=== PATIENT | male | born 1950 | race African-American/Black ===

== ENCOUNTER 2017-03-01 05:38 | Inpatient (IN) ==
[2017-02-24 08:52] LABS: MANUAL DIFF NEEDED? NO; URINE MICRO REVIEW NEEDED? NO; URINE SOURCE CLEAN CATCH
[2017-02-24 09:19] LABS: BASO% 0.2 % (0.0-0.8); EOS# 0.25 X1000 (0.0-0.7); EOS% 5.5 % (0.0-10.0); HEMATOCRIT 40.7 % (42.0-52.0); HEMOGLOBIN 13.3 g/dL (14.0-18.0); LYMPH# 1.25 X1000 (1.2-3.4); LYMPH% 27.5 % (20.5-51.1); MCH 28.9 PG (27-31); MCHC 32.7 g/dL (33-37); MCV 88.3 FL (81-99); MONO# 0.66 X1000 (0.11-0.59); MONO% 14.5 % (1.7-9.3); MPV 9.5 FL (7.4-10.4); NEUT% 52.3 % (42.2-75.2); PLT 282 X1000 (130-400); RBC 4.61 XMIL (4.7-6.1)
[2017-02-24 09:21] LABS: BILIRUBIN URINE NEGATIVE (NEGATIVE); BLOOD URINE NEGATIVE (NEGATIVE); COLOR YELLOW; GLUCOSE URINE NEGATIVE (NEGATIVE); LEUKOCYTES URINE NEGATIVE (NEGATIVE); NITRITE URINE NEGATIVE (NEGATIVE); PH URINE 5.5; PROTEIN URINE NEGATIVE (NEGATIVE); SP GRAVITY URINE 1.021; TURBIDITY URINE CLEAR (CLEAR); UROBILINOGEN URINE NORMAL (NORMAL)
[2017-02-24 09:23] LABS: UR EPITHELIAL CELLS <10 /HPF (<10); URINE BACTERIA NEGATIVE /HPF; URINE RBC <10 /HPF (<10); URINE WBC <10 /HPF (<10)
[2017-02-24 09:29] LABS: PROTIME 10.5 Seconds (9.2-11.7); PTT 28.5 Seconds (22.0-36.0)
--- NOTE | 2017-02-24 09:30 | EKG Report ---
Test Performed on : 02/24/2017 08:37:48 AM Test Reason : MD ORDER Blood Pressure : / mmHG Vent. Rate : 078 BPM Atrial Rate : 078 BPM P-R Int : 188 ms QRS Dur : 080 ms QT Int : 382 ms P-R-T Axes : 062 008 049 degrees QTc Int : 435 ms Normal sinus rhythm. Possible Left atrial enlargement Possible Inferior infarct , age undetermined Abnormal ECG No previous ECGs available Confirmed by Pramod Ramos MD ([id number]) on 02/24/2017 1:32:59 PM
[2017-02-24 09:45] LABS: AGAP 12; BUN 33 mg/dL (8-22); CALCIUM 9.6 mg/dL (8.8-10.2); CHLORIDE 100 mmol/L (98-107); COSMO 285; POTASSIUM 4.3 mmol/L (3.5-5.1); SODIUM 139 mmol/L (136-145); TCO2 27 mmol/L (25-35)
[2017-03-01] MEDS ORDERED: COLACE ONE (05:41)
[2017-03-01] MEDS ORDERED: PEPCID ONE (05:41)
[2017-03-01] MEDS ORDERED: REGLAN ONE (05:41)
[2017-03-01] MEDS ORDERED: LR 1,000 ML ONE (05:42)
[2017-03-01] MEDS ORDERED: KEFZOL 2 GM/D5W 2 GM/50 ML IVPB ONE (05:42)
[2017-03-01] MEDS ORDERED: LYRICA ONE (05:42)
[2017-03-01] MEDS ORDERED: CELEBREX ONE (05:42)
[2017-03-01] MEDS ORDERED: CYKLOKAPRON 1,000 MG/NS 2,000 MG/200 ML IVPB ONE (06:37)
[2017-03-01] MEDS ORDERED: TORADOL ONE (06:37)
[2017-03-01] MEDS ORDERED: EXPAREL 1.3% ONE (06:37)
[2017-03-01] MEDS ORDERED: DURAMORPH ONE (06:37)
[2017-03-01] MEDS ORDERED: NEOSPORIN G.U. IRRIGANT ONE (06:37)
[2017-03-01] MEDS ORDERED: SODIUM CHLORIDE 0.9% ONE (06:38)
[2017-03-01] MEDS ORDERED: DIPRIVAN 1% 500 MG/50 ML BOTTLE ONE (06:41)
[2017-03-01] MEDS ORDERED: VERSED ONE (06:45)
[2017-03-01] MEDS ORDERED: FENTANYL ONE (06:45)
[2017-03-01] MEDS ORDERED: SENSORCAINE 0.25%/EPI 1:200,000 ONE (06:49)
[2017-03-01] MEDS ORDERED: XYLOCAINE-MPF 2% ONE (07:18)
[2017-03-01] MEDS ORDERED: NEO-SYNEPHRINE ONE (07:37)
[2017-03-01] MEDS ORDERED: ROBINUL ONE (07:55)
[2017-03-01] MEDS ORDERED: PITRESSIN ONE (08:00)
[2017-03-01] MEDS ORDERED: ZOFRAN ONE (08:10)
[2017-03-01] MEDS ORDERED: OFIRMEV 1000 MG/ISOTONIC SOLN 1,000 MG/100 ML BOTTLE ONE (08:10)
[2017-03-01] MEDS ORDERED: DECADRON ONE (08:10)
[2017-03-01] MEDS ORDERED: ATROPINE ONE (09:13)
[2017-03-01] MEDS ORDERED: AMBIEN PO PRN (09:45)
[2017-03-01] MEDS ORDERED: ZOFRAN IV PRN (09:45)
[2017-03-01] MEDS ORDERED: MORPHINE IV PRN (09:45)
[2017-03-01] MEDS ORDERED: MILK OF MAGNESIA PO PRN (09:45)
[2017-03-01 10:17] LABS: URINE MICRO REVIEW NEEDED? NO; URINE SOURCE CATH
[2017-03-01] MEDS ORDERED: NS 1,000 ML ONE (10:20)
[2017-03-01 10:23] LABS: BILIRUBIN URINE NEGATIVE (NEGATIVE); BLOOD URINE NEGATIVE (NEGATIVE); COLOR STRAW; GLUCOSE URINE NEGATIVE (NEGATIVE); LEUKOCYTES URINE NEGATIVE (NEGATIVE); NITRITE URINE NEGATIVE (NEGATIVE); PROTEIN URINE NEGATIVE (NEGATIVE); SP GRAVITY URINE 1.014; TURBIDITY URINE CLEAR (CLEAR); UROBILINOGEN URINE NORMAL (NORMAL)
[2017-03-01 10:24] LABS: UR EPITHELIAL CELLS <10 /HPF (<10); URINE BACTERIA NEGATIVE /HPF; URINE RBC <10 /HPF (<10); URINE WBC <10 /HPF (<10)
[2017-03-01] MEDS: NS 1,000 ML IV SCH ×3 (11:12→21:01)
[2017-03-01] MEDS: ULTRAM PO SCH ×3 (11:49→23:00)
[2017-03-01] MEDS: TYLENOL PO SCH ×3 (11:49→23:00)
[2017-03-01] MEDS ORDERED: MYLICON PO PRN (12:33)
[2017-03-01] MEDS: OXY IR PO PRN ×2 (13:25→21:06)
[2017-03-01] MEDS ORDERED: CYKLOKAPRON 1,000 MG in NS 100 ML IV ONE (13:40)
[2017-03-01] MEDS: KEFZOL 2 GM/D5W 2 GM/50 ML IVPB IV SCH ×2 (16:12→23:01)
--- NOTE | 2017-03-01 17:11 | OPERATIVE NOTE ---
PROCEDURE DATE: 03/01/2017 PREOPERATIVE DIAGNOSIS: Right hip degenerative joint disease. POSTOPERATIVE DIAGNOSIS: Right hip degenerative joint disease. PROCEDURE PERFORMED: Right anterior total hip arthroplasty using a [facility] size 9 stem, a +0, 36 mm head, a 54 mm hemispherical shell, and a 38 mm liner. ANESTHESIA: Spinal. SURGEON: Van Reeder MD. ACCESS REP: Urvashi Sheth PA-C who was present throughout the case and was critical for preparing the implant surfaces, helping with implantation of the implants and wound closure. 2ND ACCESS REP: Duy Barbosa RN. COMPLICATIONS: None. BLOOD LOSS: Minimal. DRAINS: Hemovac x1. DESCRIPTION OF PROCEDURE: The patient was brought to the operative suite and placed in supine position. After successful administration of spinal anesthesia, patient placed on the OSI table in the usual position for right hip. The right hip was then prepped and draped in the usual sterile fashion. A longitudinal incision was made beginning 2 cm distal and 2 cm lateral to the anterior superior iliac spines extending distally and slightly laterally 8 cm. It was dissected sharply through the skin and subcutaneous tissue down to tensor fascia. Tensor fascia was incised and dissected bluntly down to the deep tensor fascia. The deep tensor fascia was incised and the circumflex vessels were electrocauterized, exposing the anterior capsule. The anterior capsule T- capsulotomy was then performed, exposing the femoral neck. A femoral neck cut was made an oscillating saw. The femoral head was removed with a power corkscrew. The labrum was resected sharply and then the acetabulum was serially reamed to a 54 to accept a 54 cup. The 54 cup was driven into place in the proper amount of inclination and anteversion. Once it was well seated, the acetabular liner was locked onto the shell. Attention was then directed to the femur. It was externally rotated, extended, adducted, and elevated out of the wound with the hook on the OSI bed. The lateral neck was rongeured. The canal was serially broached to a size 9. A size 9 high offset, +0, 36 mm head was trialed and found be excellent leg length, offset, and stability of the hip and fit and fill of the stem. The trial was removed. The definitive stem was seated on the femur. The ceramic head was seated onto the Tamayo taper and then the hip was reduced. It was again found to be in excellent position. The hip was copiously infiltrated with Exparel, including posterior capsule, anterior capsule, anterior musculature, and subcutaneous tissue. The anterior capsule was repaired with a running 0 V-Loc suture. A drain was placed deep to the tensor fascia and buried around the neck. The hip was copiously irrigated and dried, being certain all bone debris was removed. The tensor fascia was closed with a running 0 V-Loc suture. The skin edges were approximated with 2-0 Vicryl. Skin was closed with Monocryl and Prineo. A sterile dressing was applied. The patient tolerated the procedure well without complication. At the end the procedure, all counts correct x2. The patient was transferred to the recovery room in stable condition. cc: Van Reeder MD
[2017-03-01] MEDS: COREG PO SCH (21:00)
[2017-03-01] MEDS ORDERED: PRAVACHOL PO SCH (21:00)
[2017-03-01] MEDS: GLUCOPHAGE PO SCH (21:00)
[2017-03-01] MEDS: CELEBREX PO SCH (21:01)
[2017-03-01] MEDS: PRINIVIL PO SCH (21:01)
[2017-03-01] MEDS: PERIDEX MT SCH (21:01)
[2017-03-01] MEDS: LYRICA PO SCH (21:01)
[2017-03-01] MEDS: JANUVIA PO SCH (21:01)
[2017-03-01] MEDS: COLACE PO SCH (21:01)
[2017-03-02] MEDS: NS 1,000 ML IV SCH (02:58)
[2017-03-02] MEDS: ULTRAM PO SCH ×2 (05:47→12:12)
[2017-03-02] MEDS: TYLENOL PO SCH ×2 (05:47→12:13)
[2017-03-02 05:58] LABS: HEMATOCRIT 33.3 % (42.0-52.0); HEMOGLOBIN 10.5 g/dL (14.0-18.0)
[2017-03-02] MEDS ORDERED: XARELTO PO SCH ×2 (06:00)
[2017-03-02 06:22] LABS: AGAP 8; BUN 22 mg/dL (8-22); CALCIUM 7.9 mg/dL (8.8-10.2); CHLORIDE 104 mmol/L (98-107); COSMO 281; POTASSIUM 4.8 mmol/L (3.5-5.1); SODIUM 139 mmol/L (136-145); TCO2 27 mmol/L (25-35)
[2017-03-02] MEDS: PRINIVIL PO SCH ×2 (06:57→09:50)
[2017-03-02] MEDS: COREG PO SCH ×2 (06:58→09:50)
[2017-03-02] MEDS ORDERED: LOZOL PO SCH (09:00)
[2017-03-02] MEDS ORDERED: CENTRUM SILVER PO SCH (09:00)
[2017-03-02] MEDS ORDERED: LAMISIL PO SCH (09:00)
[2017-03-02] MEDS ORDERED: DECADRON IV ONE (09:00)
[2017-03-02] MEDS ORDERED: NEXIUM PO SCH (09:00)
[2017-03-02] MEDS: PERIDEX MT SCH ×2 (09:48→10:04)
[2017-03-02] MEDS: LYRICA PO SCH (09:49)
[2017-03-02] MEDS: CELEBREX PO SCH (09:49)
[2017-03-02] MEDS: GLUCOPHAGE PO SCH (09:49)
[2017-03-02] MEDS: JANUVIA PO SCH (09:49)
[2017-03-02] MEDS: OXY IR PO PRN (10:01)
[2017-03-02] MEDS: COLACE PO SCH (10:05)
[2017-03-02 11:20] VITALS: BP 122/75
--- NOTE | 2017-03-03 08:11 | DISCHARGE SUMMARY ---
ADMISSION DATE: 03/01/2017 DISCHARGE DATE: 03/02/2017 DISCHARGE DIAGNOSIS: Right hip degenerative joint disease, status post right total hip arthroplasty. DISCHARGE MEDICATIONS: See discharge medication list. DISPOSITION: The patient is discharged home with home health. DISCHARGE INSTRUCTIONS: Instructions for total hip arthroplasty protocol and instructed to return to see Dr. Reeder next . HOSPITAL COURSE: On the day of admission, patient underwent a right total hip arthroplasty. His postoperative course was unremarkable. At discharge, he was afebrile and tolerating a regular diet. He was ambulating well with physical therapy. Yesterday, he walked 35 feet. His hemoglobin is 10.5 and his hematocrit is 33.3. He had 0 mL of drainage from his Hemovac. His wound is clean, dry, and intact without sign of infection. He is discharged home with home health in stable condition with instructions to follow up as described above. Dictated by PATRICIA Felix for Van Reeder MD cc: PATRICIA Felix MD
== END 2017-03-02 13:47 | disposition home health service (06) ==
LOC: SURHOLD 05:38 → 4N 07:32
PROVIDERS: ADMIT Orthopaedic Surgery; ATTEND Orthopaedic Surgery